=== PATIENT | male | born 1960 | race Caucasian/White ===

== ENCOUNTER 2017-08-08 10:01 | Emergency (ER) | payer MEDICAID ==
[2017-08-08] MEDS ORDERED: KETOROLAC TROMETHAMINE 30MG/ML ONE (11:06)
== END 2017-08-08 11:24 | disposition home or self-care (01) ==
LOC: EDH 10:01
DX: S43.421A Sprain of right rotator cuff capsule, initial encounter (principal); G89.29 Other chronic pain; M54.6 Pain in thoracic spine; Z72.0 Tobacco use; X58.XXXA Exposure to other specified factors, initial encounter; Y93.89 Activity, other specified; Y92.89 Other specified places as the place of occurrence of the external cause; Y99.8 Other external cause status
CPT/HCPCS: 73030; 96372; 99284; J1885

== ENCOUNTER → 2017-10-30 | Outpatient (CLI) | payer OTHER | END | disposition home or self-care (01) | LOC: OIH 14:15 | PROVIDERS: ATTEND Internal Medicine | DX: M19.011 Primary osteoarthritis, right shoulder (principal) | CPT/HCPCS: 73030 ==

== ENCOUNTER 2020-01-02 13:02 | Inpatient (IN) | payer OTHER, SELFPAY ==
[~2020-01-02] VITALS: Ht 175.3 cm; Wt 79.5 kg
[2020-01-02 13:51] LABS: BASOPHILS % (AUTO) 0.4 % (0.0-5.0); EOSINOPHILS % (AUTO) 1.2 % (0.0-8.0); HEMATOCRIT 30.1 % (42-54); LYMPHOCYTES % (AUTO) 8.6 % (21.0-51.0); MEAN CORPUSCULAR HEMOGLOBIN 39.2 pg (27.0-33.0); MEAN CORPUSCULAR HGB CONC 36.2 g/dL (32.0-36.0); MEAN CORPUSCULAR VOLUME 108.3 fL (79-99); MONOCYTES % (AUTO) 5.5 % (3.0-13.0); NEUTROPHILS % (AUTO) 83.3 % (40.0-77.0); PLATELET COUNT (AUTO) 131 K/uL (130-400); RED BLOOD CELL COUNT(AUTO) 2.78 MIL/uL (4.50-6.20); RED CELL DISTRIBUTION WIDTH 18.1 % (11.0-15.5); WHITE BLOOD COUNT (AUTO) 16.1 K/uL (4.8-10.8)
[2020-01-02 13:58] LABS: CREATININE 1.4 mg/dL (0.5-1.5); POTASSIUM 4.6 mmol/L (3.5-5.1)
[2020-01-02 14:02] LABS: BILIRUBIN,TOTAL 7.5 mg/dL (0.2-1.0); TOTAL PROTEIN, SERUM 6.8 g/dL (6.0-8.3)
[2020-01-02 14:16] LABS: CRP QUANTITATIVE 83.7 mg/L (0.00-9.0)
[2020-01-02 14:19] LABS: INR 1.12 (0.85-1.15)
[2020-01-02] MEDS ORDERED: LACTULOSE 20 GM/30 ML UDCUP ONE (14:47)
[2020-01-02] MEDS ORDERED: ZOSYN 3.375GM+NS 50ML 50 ML IV ONE ×2 (15:49→23:21)
[2020-01-02] MEDS ORDERED: VANCOMYCIN 1GM+NS 250ML 250 ML IV ONE (15:49)
[2020-01-02] MEDS ORDERED: TRAMADOL HCL 50 MG TABLET PO PRN (17:45)
[2020-01-02] MEDS ORDERED: LACTULOSE 20 GM/30 ML UDCUP PO SCH (17:45)
[2020-01-02] MEDS ORDERED: PHARMACY COMMUNICATION MISC PRN (17:45)
[2020-01-02] MEDS ORDERED: CHLORDIAZEPOXIDE HCL 25 MG CAP PO PRN (17:45)
[2020-01-02] MEDS ORDERED: THIAMINE HCL 100 MG, FOLIC ACID 1 MG, M.V.I. IV [ADULT] 10 ML in SODIUM CHLORIDE 0.9% 1... IV SCH (18:00)
[2020-01-02] MEDS ORDERED: ALBUMIN (HUMAN) 25% 50 ML IV ONE (19:53)
[2020-01-02] MEDS ORDERED: THIAMINE HCL 100 MG TABLET PO SCH (20:00)
[2020-01-02 20:06] LABS: APPEARANCE,URINE Cloudy (CLEAR); BILIRUBIN,URINE Moderate (NEGATIVE); COLOR,URINE Dark Yellow (YELLOW); GLUCOSE, URINE (UA) Negative (NEGATIVE); KETONES,URINE Negative (NEGATIVE); LEUKOCYTE ESTERASE ,URINE Small (NEGATIVE); NITRATE,URINE Positive (NEGATIVE); OCCULT BLOOD,URINE Small (NEGATIVE); PROTEIN,URINE Negative (NEGATIVE)
[2020-01-02 20:17] LABS: BACTERIA,URINE Few /HPF (None Seen)
[2020-01-02 20:18] LABS: SQUAMOUS EPITHELIAL CELL,UR Few /HPF (0-2)
[2020-01-02] MEDS: PANTOPRAZOLE SODIUM 40 MG TABLET.DR PO SCH (21:00)
[2020-01-03] MEDS: ALBUMIN (HUMAN) 25% 100 ML IV SCH ×4 (02:00→18:06)
[2020-01-03] MEDS ORDERED: ALBUMIN (HUMAN) 25% 100 ML IV ONE (04:51)
[2020-01-03 04:59] LABS: BASOPHILS % (AUTO) 0.7 % (0.0-5.0); EOSINOPHILS % (AUTO) 4.7 % (0.0-8.0); HEMATOCRIT 24.7 % (42-54); LYMPHOCYTES % (AUTO) 12.1 % (21.0-51.0); MEAN CORPUSCULAR HEMOGLOBIN 38.9 pg (27.0-33.0); MEAN CORPUSCULAR VOLUME 107.9 fL (79-99); MONOCYTES % (AUTO) 6.4 % (3.0-13.0); NEUTROPHILS % (AUTO) 75.1 % (40.0-77.0); PLATELET COUNT (AUTO) 109 K/uL (130-400); RED BLOOD CELL COUNT(AUTO) 2.29 MIL/uL (4.50-6.20); RED CELL DISTRIBUTION WIDTH 17.8 % (11.0-15.5); WHITE BLOOD COUNT (AUTO) 13.4 K/uL (4.8-10.8)
[2020-01-03 05:07] LABS: CREATININE 1.3 mg/dL (0.5-1.5); POTASSIUM 3.5 mmol/L (3.5-5.1)
[2020-01-03 05:18] LABS: INR 1.18 (0.85-1.15); PARTIAL THROMBOPLASTIN TIME 29.4 SEC (26.3-35.5); PROTHROMBIN TIME 12.7 SEC (9.6-11.6)
[2020-01-03] MEDS ORDERED: LACTULOSE 20 GM/30 ML UDCUP ONE (06:59)
[2020-01-03] MEDS: ZOSYN 3.375GM+NS 50ML 50 ML IV SCH ×3 (08:00→18:05)
[2020-01-03] MEDS: FOLIC ACID 1 MG TABLET PO SCH (09:00)
[2020-01-03] MEDS: PANTOPRAZOLE SODIUM 40 MG TABLET.DR PO SCH ×2 (09:00→22:43)
[2020-01-03] MEDS: THIAMINE HCL 100 MG TABLET PO SCH (09:00)
[2020-01-03] MEDS ORDERED: ZOSYN 3.375GM+NS 50ML 50 ML IV ONE (09:34)
[2020-01-03 17:15] VITALS: BP 126/73
[2020-01-03] MEDS ORDERED: LACTULOSE 20 GM/30 ML UDCUP PO SCH (18:00)
[2020-01-03 20:09] VITALS: BP 104/63
[2020-01-03 23:44] VITALS: BP 118/69
[2020-01-04] MEDS: ZOSYN 3.375GM+NS 50ML 50 ML IV SCH ×4 (00:44→23:27)
[2020-01-04 03:56] VITALS: BP 102/67
[2020-01-04 04:34] LABS: HEMATOCRIT 22.8 % (42-54); MEAN CORPUSCULAR VOLUME 108.6 fL (79-99); NUCLEATED RED BLOOD CELLS 0.2 % (0.0-0.19); RED BLOOD CELL COUNT(AUTO) 2.1 MIL/uL (4.50-6.20); RED CELL DISTRIBUTION WIDTH 17.6 % (11.0-15.5); WHITE BLOOD COUNT (AUTO) 11.1 K/uL (4.8-10.8)
[2020-01-04 04:46] LABS: ALBUMIN 2.2 g/dL (3.5-5.0); BILIRUBIN,DIRECT 3.4 mg/dL (0.0-0.3); BILIRUBIN,TOTAL 4.6 mg/dL (0.2-1.0); CREATININE 1.3 mg/dL (0.5-1.5); TOTAL PROTEIN, SERUM 5.2 g/dL (6.0-8.3)
[2020-01-04] MEDS ORDERED: POTASSIUM CHLORIDE 10MEQ/100ML 100 ML IV PRN (05:30)
[2020-01-04] MEDS ORDERED: LIDOCAINE HCL-MPF 1% 2ML VIAL IV PRN (05:30)
[2020-01-04] MEDS: POTASSIUM CHLORIDE 10% ELIXIR 20 MEQ/15 ML UDCUP PO PRN ×3 (06:10→09:15)
[2020-01-04 07:47] VITALS: BP 108/67
[2020-01-04] MEDS: THIAMINE HCL 100 MG TABLET PO SCH (09:03)
[2020-01-04] MEDS: LACTULOSE 20 GM/30 ML UDCUP PO SCH ×2 (09:03→20:45)
[2020-01-04] MEDS: PANTOPRAZOLE SODIUM 40 MG TABLET.DR PO SCH ×2 (09:03→20:45)
[2020-01-04] MEDS: FOLIC ACID 1 MG TABLET PO SCH (09:03)
[2020-01-04 11:49] VITALS: BP 109/74
--- NOTE | 2020-01-04 12:26 | NUR ---
D/C PLAN CM spoke to pt regarding d/c planning. Pt is ind. and lives alone. Denies having any DME. States he has family/friends that can assist in care. Plan to home. States he has transportation to home at d/c. No needs verbalized identified. Addendum: 01/04/20 at 1227 by IMMANUEL POOLE CM Amended: Links added.
[2020-01-04 16:00] VITALS: BP 117/75
[2020-01-04 20:00] VITALS: BP 101/60
--- NOTE | 2020-01-04 23:37 | NUR ---
PATIENT AT THIS TIME REFUSES TO SIGN CONSENT FOR PARACENTESIS AND STATED THAT HE MIGHT NOT WANT IT DONE. NURSE ASKED PATIENT WHY HE CAME TO THAT DECISION AND PATIENT STATED "I JUST DID".
[2020-01-05] VITALS (15 sets, daily range): BP systolic 82–128; BP diastolic 53–81
[2020-01-05 06:06] LABS: ALBUMIN 2.1 g/dL (3.5-5.0); BILIRUBIN,TOTAL 3.7 mg/dL (0.2-1.0); CREATININE 1.4 mg/dL (0.5-1.5); POTASSIUM 3.6 mmol/L (3.5-5.1); TOTAL PROTEIN, SERUM 5.4 g/dL (6.0-8.3)
[2020-01-05] MEDS: POTASSIUM CHLORIDE 10% ELIXIR 20 MEQ/15 ML UDCUP PO PRN ×2 (06:30→12:05)
--- NOTE | 2020-01-05 08:00 | NUR ---
AM ASSESSMENT PT LAYING IN BED, HOB ELEVATED 30 DEGREES, WATCHING TV. A/O X 3. SOB ON EXERTION. NO DISTRESS NOTED. DENIES CHEST PAIN OR DISCOMFORT. DENIES PALPITATIONS. TELE: ST. DENIES N/V AND/OR DIARRHEA. (+) ASCITES. PT TO HAVE PARACENTESIS TODAY BY IR. PT HAD REFUSED PARACENTESIS LAST NIGHT. PT NOW AGREES TO HAVING PARACENTESIS DONE. CONSENT SIGNED. BEDREST. PT TO EVAL. INSTRUCTED TO CALL FOR ASSISTANCE. CALL VASU W/IN REACH.
[2020-01-05] MEDS: LACTULOSE 20 GM/30 ML UDCUP PO SCH ×2 (08:09→20:51)
[2020-01-05] MEDS: THIAMINE HCL 100 MG TABLET PO SCH (08:09)
[2020-01-05] MEDS: PANTOPRAZOLE SODIUM 40 MG TABLET.DR PO SCH ×2 (08:09→20:51)
[2020-01-05] MEDS: FOLIC ACID 1 MG TABLET PO SCH (08:09)
--- NOTE | 2020-01-05 10:23 | NUR ---
STATUS PT TAKEN TO IR FOR PARACENTESIS VIA BED. TELE BENITA REMOVED.
[2020-01-05] MEDS ORDERED: ALBUMIN (HUMAN) 25% 100 ML IV SCH (11:30)
--- NOTE | 2020-01-05 11:30 | NUR ---
STATUS PT BACK FROM IR VIA BED. S/P PARACENTESIS, 5 L. V/S WNL. PT TO RECEIVE ALBUMIN IV TODAY.
--- NOTE | 2020-01-05 11:30 | NUR ---
U/S GD PARACENTESIS PROCEDURE PERFORMED BY DR Mike OCHOA. PUNCTURE SITE RLQ AND PATIENT TOLERATED PROCEDURE WELL. TOTAL REMOVED 5 LITERS OF CLOUDY YELLOW FLUID. END OF PROCEDURE AT 1110. CATHETER REMOVED AND DRESSING APPLIED. NO BLEEDING NOTED. REPORT GIVEN TO Maureen MIDDLETON RN AND PATIENT TRANSPORTED TO [facility] VIA BED AT 1130. AAO X3 WITH NO C/O PAIN. SPECIMEN SENT TO LAB.
[2020-01-05] MEDS: ZOSYN 3.375GM+NS 50ML 50 ML IV SCH ×2 (12:05→20:51)
[2020-01-05 13:50] LABS: APPEARANCE BODY FLUID CLEAR (CLEAR); COLOR,BODY FLUID YELLOW (LT YELLOW); SPECIMENTYPE,BODY FLUID ASCITES; TOTAL VOLUME,BODY FLUID 5000 mL
[2020-01-05 13:51] LABS: BODY FLUID RBC 60 /cu. mm.; BODY FLUID WBC 80 /cu. mm.
[2020-01-05 14:13] LABS: BF LYMPHOCYTE 11 %; BF MESOTHELIAL 65 %
[2020-01-05 14:56] LABS: ALBUMIN,BODY FLUID 0.2 g/dL
[2020-01-06 04:00] VITALS: BP 104/76
[2020-01-06 04:31] LABS: ALBUMIN 2.3 g/dL (3.5-5.0); BILIRUBIN,TOTAL 3.6 mg/dL (0.2-1.0); CREATININE 1.3 mg/dL (0.5-1.5); POTASSIUM 3.5 mmol/L (3.5-5.1); TOTAL PROTEIN, SERUM 5.2 g/dL (6.0-8.3)
[2020-01-06] MEDS: ZOSYN 3.375GM+NS 50ML 50 ML IV SCH ×3 (04:44→20:48)
[2020-01-06 08:00] VITALS: BP 99/57
[2020-01-06] MEDS: FOLIC ACID 1 MG TABLET PO SCH (08:20)
[2020-01-06] MEDS: THIAMINE HCL 100 MG TABLET PO SCH (08:20)
[2020-01-06] MEDS: PANTOPRAZOLE SODIUM 40 MG TABLET.DR PO SCH ×2 (08:21→20:50)
[2020-01-06] MEDS: POTASSIUM CHLORIDE 10% ELIXIR 20 MEQ/15 ML UDCUP PO PRN (08:25)
[2020-01-06] MEDS: LACTULOSE 20 GM/30 ML UDCUP PO SCH ×3 (08:26→20:50)
[2020-01-06 12:00] VITALS: BP 90/55
[2020-01-06 16:00] VITALS: BP 106/64
[2020-01-06 20:25] VITALS: BP 93/61
[2020-01-06 23:11] VITALS: BP 101/63
[2020-01-07 03:14] VITALS: BP 106/61
[2020-01-07] MEDS: ZOSYN 3.375GM+NS 50ML 50 ML IV SCH (05:26)
[2020-01-07 05:42] LABS: BASOPHILS % (AUTO) 1.1 % (0.0-5.0); EOSINOPHILS % (AUTO) 3.8 % (0.0-8.0); LYMPHOCYTES % (AUTO) 10.3 % (21.0-51.0); MEAN CORPUSCULAR HEMOGLOBIN 38.6 pg (27.0-33.0); MEAN CORPUSCULAR HGB CONC 34.5 g/dL (32.0-36.0); MEAN CORPUSCULAR VOLUME 111.9 fL (79-99); MONOCYTES % (AUTO) 6.6 % (3.0-13.0); NEUTROPHILS % (AUTO) 77.4 % (40.0-77.0); PLATELET COUNT (AUTO) 151 K/uL (130-400); RED BLOOD CELL COUNT(AUTO) 2.77 MIL/uL (4.50-6.20)
[2020-01-07 05:57] LABS: ALBUMIN 2.5 g/dL (3.5-5.0); BILIRUBIN,TOTAL 4.5 mg/dL (0.2-1.0); CREATININE 1.3 mg/dL (0.5-1.5); POTASSIUM 3.9 mmol/L (3.5-5.1); TOTAL PROTEIN, SERUM 5.8 g/dL (6.0-8.3)
--- NOTE | 2020-01-07 07:27 | NUR ---
AMA PATIENT BECAME IRRITATED AT 0600 THAT HE WANTED TO GO HOME TO FEED HIS CAT. WAS ASKED TO WAIT FOR PHYSICIAN. PATIENT REFUSED. NOTIFIED FAMILY. FAMILY STATED TO LET HIM LEAVE. ENCOURAGED FAMILY TO OBTAIN RIDE FOR PATIENT. STATED THEY DID NOT HAVE ANY WAY OF GETTING THE PATIENT A RIDE. ASKED PATIENT TO WAIT UNTIL TRANSPORTATION WAS SET UP PATIENT REFUSED AND WALKED OUT.
== END 2020-01-07 07:15 | disposition left against medical advice (07) | DRG 872 ==
LOC: EDH 13:02 → EDHIP 13:03 → 4DH 01-03 16:40 → 4AH 01-06 03:22
PROVIDERS: ADMIT Internal Medicine; ATTEND Internal Medicine
PROC: 0W9G3ZZ Drainage of Peritoneal Cavity, Percutaneous Approach (ICD-10-PCS; principal; 2020-01-05)
DX: A41.9 Sepsis, unspecified organism (principal); L03.116 Cellulitis of left lower limb; N17.9 Acute kidney failure, unspecified; L03.115 Cellulitis of right lower limb; E44.0 Moderate protein-calorie malnutrition; R65.20 Severe sepsis without septic shock; K72.90 Hepatic failure, unspecified without coma; K70.31 Alcoholic cirrhosis of liver with ascites; D64.9 Anemia, unspecified; D69.6 Thrombocytopenia, unspecified; E87.6 Hypokalemia; F17.210 Nicotine dependence, cigarettes, uncomplicated; I10 Essential (primary) hypertension; F32.9 Major depressive disorder, single episode, unspecified; F41.9 Anxiety disorder, unspecified; Z20.828 Contact with and (suspected) exposure to other viral communicable diseases; R29.6 Repeated falls; Z68.25 Body mass index [BMI] 25.0-25.9, adult; Z53.29 Procedure and treatment not carried out because of patient's decision for other reasons
CPT/HCPCS: 36415; 49083; 70450; 71045; 76700; 80048; 80053; 81001; 82042; 82140; 82248; 82550; 83605; 83615; 84157; 84484; 85025; 85027; 85610; 85651; 85730; 86140; 87040; 87071; 87088; 87205; 87635; 89051; 93005; 93970; 97039; 99291; G0378; J2543; J3370; J3411; J3490; J7030; P9046; P9047